=== PATIENT | female | born 1985 | race Caucasian/White ===

== ENCOUNTER 2017-07-22 01:50 | Observation (INO) | payer MEDICAID ==
[2017-07-22 02:37] LABS: AMORPHOUS SEDIMENT,URINE TRACE /HPF; APPEARANCE,URINE CLEAR; BILIRUBIN,URINE NEGATIVE (NEGATIVE); COLOR,URINE STRAW; GLUCOSE, URINE NEGATIVE (NEGATIVE); KETONES,URINE NEGATIVE (NEGATIVE); LEUKOCYTE ESTERASE,URINE NEGATIVE (NEGATIVE); NITRITE,URINE NEGATIVE (NEGATIVE); PROTEIN,URINE NEGATIVE (NEGATIVE); URINE SPECIFIC GRAVITY 1.004; UROBILINOGEN,URINE NEGATIVE mg/dL (<2.0)
[2017-07-22 02:49] LABS: URINE AMPHETAMINES SCREEN NEGATIVE; URINE BARBITURATES SCREEN NEGATIVE; URINE BENZODIAZEPINES SCREEN NEGATIVE; URINE COCAINE SCREEN NEGATIVE; URINE MARIJUANA (THC) SCREEN NEGATIVE; URINE METHADONE SCREEN NEGATIVE; URINE PHENCYCLIDINE SCREEN NEGATIVE
--- NOTE | 2017-07-22 04:14 | RADIOLOGY REPORT (SQ) ---
EXAM DESCRIPTION: U/S OB LIMITED COMPLETED DATE/TIME: 07/22/2017 3:37 am REASON FOR STUDY: contractions. The patient is 33 weeks 2 days . COMPARISON: None. TECHNIQUE: Limited transvaginal and transabdominal grayscale ultrasound for evaluation of specific r equested obstetrical parameters. LIMITATIONS: None. FINDINGS: CERVIX: There is funneling of the cervix at the internal os measuring approximately 3.5 cm in width and 3.0 cm in depth. The residual closed segment of the cervix measures 1.7 cm in length. FHR: 158 beats per minute. PRESENTATION: Vertex. IMPRESSION: LIMITED OBSTETRICAL ULTRASOUND WITH MEASURED PARAMETERS DELINEATED ABOVE. CERVICAL FUNNELING WITH SHORTENING OF THE CERVIX, WORRISOME FOR CERVICAL INCOMPETENCE. Trimester of : Third trimester - 28 weeks to delivery. TECHNICAL DOCUMENTATION: JOB ID: [id number] [employer]- All Rights Reserved
[2017-07-22] MEDS ORDERED: MAGNESIUM SULFATE 4 GM/100 ML RTUPB IV ONE ×2 (04:33→04:43)
[2017-07-22] MEDS ORDERED: BETAMET ACET/BETAMET NA INJ 6 MG/1 ML ONE (04:42)
[2017-07-22] MEDS ORDERED: BETAMET ACET/BETAMET NA INJ 6 MG/1 ML IM ONE (04:45)
[2017-07-22] MEDS ORDERED: CLINDAMYCIN 900 MG/D5W RTU 50 ML IV ONE ×4 (04:45→21:44)
[2017-07-22] MEDS: RINGERS SOLUTION,LACTATED 1,000 ML IV PRN ×2 (05:02→12:07)
[2017-07-22 05:58] LABS: HEMATOCRIT 36.5 % (36.0-47.0); HEMOGLOBIN 12.6 g/dL (12.0-15.5); MEAN CORPUSCULAR HEMOGLOBIN 29.4 pg (27.0-33.4); MEAN CORPUSCULAR HGB CONC 34.4 g/dL (32.0-36.0); MEAN CORPUSCULAR VOLUME 86 fl (80-97); PLATELET COUNT 247 10^3/uL (150-450); RED BLOOD COUNT 4.27 10^6/uL (3.72-5.28); RED CELL DISTRIBUTION WIDTH 14.8 % (11.5-14.0); WHITE BLOOD COUNT 21.5 10^3/uL (4.0-10.5)
[2017-07-22 06:51] LABS: ABSOLUTE LYMPHOCYTES# (MANUAL) 3.4 10^3/uL (0.5-4.7); ABSOLUTE MONOCYTES # (MANUAL) 0.6 10^3/uL (0.1-1.4); ABSOLUTE NEUTROPHILS# (MANUAL) 17.4 10^3/uL (1.7-8.2); BASOPHILS % (MANUAL) 0 % (0-2); EOSINOPHILS % (MANUAL) 0 % (0-6); LYMPHOCYTES % (MANUAL) 16 % (13-45); MONOCYTES % (MANUAL) 3 % (3-13); SEGMENTED NEUTROPHILS % (MAN) 81 % (42-78); TOTAL CELLS COUNTED 100
[2017-07-22 06:53] LABS: ANISOCYTOSIS SLIGHT
[2017-07-22 06:54] LABS: PLATELET COMMENT ADEQUATE
[2017-07-22 07:53] LABS: CHLAM PCR NOT DETECTED (NOT DETECT); GON PCR NOT DETECTED (NOT DETECT)
[2017-07-22] MEDS: MAGNESIUM SULFATE 20 GM/500 ML RTUINJ IV PRN ×2 (10:07→15:01)
[2017-07-22] MEDS: CLINDAMYCIN 900 MG/D5W RTU 50 ML IV SCH ×2 (14:28→21:55)
[2017-07-22] MEDS ORDERED: ZOLPIDEM TARTRATE 5 MG TABLET PO ONE (20:30)
[2017-07-22] MEDS ORDERED: ZOLPIDEM TARTRATE 5 MG TABLET ONE (21:43)
[2017-07-22] MEDS ORDERED: ACETAMINOPHEN 325 MG TABLET ONE (22:13)
[2017-07-22] MEDS: ACETAMINOPHEN 325 MG TABLET PO PRN (22:13)
[2017-07-23] MEDS: MAGNESIUM SULFATE 20 GM/500 ML RTUINJ IV PRN (00:49)
[2017-07-23] MEDS: RINGERS SOLUTION,LACTATED 1,000 ML IV PRN (02:02)
[2017-07-23] MEDS ORDERED: BETAMET ACET/BETAMET NA INJ 6 MG/1 ML IM ONE (04:30)
[2017-07-23] MEDS ORDERED: BETAMET ACET/BETAMET NA INJ 6 MG/1 ML ONE (04:58)
[2017-07-23] MEDS ORDERED: ACETAMINOPHEN 325 MG TABLET ONE (05:40)
[2017-07-23] MEDS ORDERED: CLINDAMYCIN 900 MG/D5W RTU 50 ML IV ONE (05:40)
[2017-07-23] MEDS: ACETAMINOPHEN 325 MG TABLET PO PRN (05:43)
[2017-07-23] MEDS: CLINDAMYCIN 900 MG/D5W RTU 50 ML IV SCH (05:45)
[2017-07-23 07:58] VITALS: BP 107/64
--- NOTE | 2017-08-31 14:28 | PDOC H&P ---
History of Present Illness Admission Date/PCP: 07/22/17 04:32 Patient complains of: contractions/cramping. 33 wks EGA History of Present Illness: FRANCIA SLOAN is a 32 year old female presenting @ approximately 33 4/7 wks EGA with c/o cramping and mild discharge Past Medical History Neurological Medical History: Reports: Seizures - Seizures as a child Past Surgical History Past Surgical History: Reports: Tonsillectomy Social History Information Source: Patient Lives with: Family Smoking Status: Unknown if Ever Smoked Family History Family History: None Parental Family History Reviewed: No Children Family History Reviewed: No Sibling(s) Family History Reviewed.: No Medication/Allergy Home Medications: Prenat 115/Iron Fum/Folic/Dss [ 19 Tablet] 1 each PO DAILY 07/22/17 Docusate Sodium [Colace 100 mg Capsule] 100 mg PO BID #60 capsule 08/27/17 Ibuprofen [Motrin 800 mg Tablet] 800 mg PO Q8 #60 tablet 08/27/17 Allergies/Adverse Reactions: amoxicillin Allergy (Verified 08/25/17 23:47) ampicillin Allergy (Verified 08/25/17 23:47) ciprofloxacin [From Cipro] Allergy (Verified 08/25/17 23:47) erythromycin base Allergy (Verified 08/25/17 23:47) Penicillins Allergy (Verified 08/25/17 23:47) sulfamethoxazole [From Septra] Allergy (Verified 08/25/17 23:47) trimethoprim [From Septra] Allergy (Verified 08/25/17 23:47) Physical Exam - Physical Exam Vital Signs: Temp Pulse Resp BP Pulse Ox 97.6 F 99 16 107/64 98 07/23/17 07:45 07/23/17 07:45 07/23/17 07:45 07/23/17 07:45 07/23/17 07:45 General appearance: PRESENT: mild distress GI/Abdominal exam: PRESENT: soft - gravid, nontender - Gynecological Exam Labia: normal Urethra: normal Introitus: normal Perineum: normal Vagina: normal Cervix: normal Cervix: normal Result Laboratory Results: 07/22/17 05:32 Impressions: Obstetrics Ultrasound 07/22/17 00:00 IMPRESSION: LIMITED OBSTETRICAL ULTRASOUND WITH MEASURED PARAMETERS DELINEATED ABOVE. CERVICAL FUNNELING WITH SHORTENING OF THE CERVIX, WORRISOME FOR CERVICAL INCOMPETENCE. Trimester of : Third trimester - 28 weeks to delivery. Assessment & Plan - Diagnosis (1) Qualifiers: Weeks of gestation: 33 weeks Qualified Code(s): Z3A.33 - 33 weeks gestation of Is this a current diagnosis for this admission?: Yes (2) contractions Is this a current diagnosis for this admission?: Yes (3) Antepartum cervical shortening Is this a current diagnosis for this admission?: Yes - Time Time Spent: 30 to 50 Minutes Critical Time spent with patient: Less than 15 minutes Anticipated discharge: Home Within: within 24 hours, within 48 hours - Inpatient Certification Based on my medical assessment, after consideration of the patient's comorbidities, presenting symptoms, or acuity I expect that the services needed warrant INPATIENT care.: Yes I certify that my determination is in accordance with my understanding of Medicare's requirements for reasonable and necessary INPATIENT services [42 CFR 412.3e].: Yes Medical Necessity: Need Close Monitoring Due to Risk of Patient Decompensation, Need For IV Fluids, Risk of Complication if Not Cared For in Hospital, Other - risk of delivery - Plan Summary Plan Summary: will admit for ACS protocol for lung maturity and magnesium sulfate both for tocolysis as well as neuroprotection. plan discussed with patient who voices understanding that delivery could be early or if interventions are successful could be delayed until closer to term. Voices understanding. Give Clindamycin for GBS prophylaxis/increase latency
--- NOTE | 2017-08-31 14:42 | PDOC DISCHARGE SUMMARY ---
General - Admit/Disc Date/PCP Admission Date/Primary Care Provider: 07/22/17 04:32 Discharge Date: 07/23/17 - Discharge Diagnosis (1) Is this a current diagnosis for this admission?: Yes (2) contractions Is this a current diagnosis for this admission?: Yes (3) Antepartum cervical shortening Is this a current diagnosis for this admission?: Yes - Additional Information Discharge Diet: Regular Discharge Activity: Activity As Tolerated, Balance Activity w/Rest, Pelvic Rest Home Medications: Prenat 115/Iron Fum/Folic/Dss [ 19 Tablet] 1 each PO DAILY 07/22/17 Docusate Sodium [Colace 100 mg Capsule] 100 mg PO BID #60 capsule 08/27/17 Ibuprofen [Motrin 800 mg Tablet] 800 mg PO Q8 #60 tablet 08/27/17 History of Present Illness History of Present Illness: FRANCIA SLOAN is a 32 year old female presenting @ approximately 33 4/7 wks EGA with c/o cramping and mild discharge Hospital Course Hospital Course: has undergone labors interventions of ACS and Magnesium sulfate without difficulty. Contractions have resolved and no further signs of labor progression. Desires discharge home Physical Exam - Physical Exam Vital Signs: Temp Pulse Resp BP Pulse Ox 97.6 F 99 16 107/64 98 07/23/17 07:45 07/23/17 07:45 07/23/17 07:45 07/23/17 07:45 07/23/17 07:45 General appearance: PRESENT: no acute distress, cooperative GI/Abdominal exam: PRESENT: soft, other - gravid, nontender - Gynecological Exam Labia: normal Urethra: normal Introitus: normal Perineum: normal Vagina: normal Cervix: normal Cervix: normal Result Laboratory Results: 07/22/17 05:32 Impressions: Obstetrics Ultrasound 07/22/17 00:00 IMPRESSION: LIMITED OBSTETRICAL ULTRASOUND WITH MEASURED PARAMETERS DELINEATED ABOVE. CERVICAL FUNNELING WITH SHORTENING OF THE CERVIX, WORRISOME FOR CERVICAL INCOMPETENCE. Trimester of : Third trimester - 28 weeks to delivery. Plan Discharge Plan: discharge home with strict instructions to return if contractions begin again. Bleeding, kick count and rupture of membranes precautions given. Time Spent: Less than 30 Minutes
== END 2017-07-23 10:07 | disposition home or self-care (01) ==
LOC: LC 01:50 → LR 04:32 → UNDODISOB 07-23 10:07
PROVIDERS: ADMIT Obstetrics & Gynecology; ATTEND Obstetrics & Gynecology
PROC: 4A0HXCZ Measurement of Products of Conception, Cardiac Rate, External Approach (ICD-10-PCS; principal; 2017-07-22)
DX: O60.03 Preterm labor without delivery, third trimester (principal); O26.873 Cervical shortening, third trimester; Z3A.33 33 weeks gestation of pregnancy
CPT/HCPCS: 59025; 86900; 86901; 36415; 86870; 86850; 83735; 85025; 87077; 86592; 81001; 87081; 80307; 87491; 87591; 86902; 76815; G0378 ×2; G0379; J3475; J3490 ×3; J0702 ×2

== ENCOUNTER 2017-08-25 14:46 | Outpatient (CLI) | payer MEDICAID ==
--- NOTE | 2017-08-25 14:57 | Admission Physical ---
Datetime Report Generated by CPN: 08/25/2017 14:57 CURRENT ADMISSION Chief Complaint: Uterine Contractions Indication for Induction: Not Applicable Indication for Induction: , Intrauterine ; No Active Labor; Observation/Evaluation Admit Plan: Admit to Unit; Observation/Evaluation ALLERGIES Medication Allergies: Yes Medication Allergies: Penicillins (07/22/2017); ampicillin (07/22/2017); erythromycin base (07/22/2017); sulfamethoxazole (07/22/2017); trimethoprim (07/22/2017); ciprofloxacin (07/22/2017); amoxicillin (07/22/2017) Medication Allergies: No Known Allergies (05/16/2016) Latex: No Latex Allergies OBSTETRICAL HISTORY EDC: 09/07/2017 00:00 : 3 Para: 2 Term: 2 : 0 SAB: 0 IAB: 0 Ectopic: 0 Livin Cesareans: 0 VBACs: 0 Multiple Births: 0 Gestational Diabetes: Yes Rh Sensitization: No Incompetent Cervix: Unknown DAMEON: No Infertility: No ART Treatment: No Uterine Anomaly: No IUGR: No Hx Previous C/S: No Macrosomia: No Hx Loss/Stillborn: No PIH: No Hx : No Placenta Previa/Abruption: No Depression/PP Depression: No PTL/PROM: Yes Post Hemorrhage: Yes Current Procedures: Ultrasound; NST Obstetrical History Comments: G1- - bed rest, delivered at 38 weeks G2- - dialating starting at 23 wks, bed rest delivered 38 weeks SEE RECORDS Alcohol: No Marijuana : No Cocaine: No Other Illicit Drugs: No Cigarettes: Current Everyday Smoker. [id number] Cigarette Frequency: < 5 per day Advised to Stop: Yes MEDICAL HISTORY Diabetes: No Blood Transfusion: No Pulmonary Disease (Asthma, TB): No Breast Disease: No Hypertension: No Health Practice Manager Surgery: No Heart Disease: No Hosp/Surgery: No Autoimmune Disorder: No Anesthetic Complications: No Kidney Disease: No Abnormal Pap Smear: No Neuro/Epilepsy: No Psychiatric Disorders: Yes Other Medical Diseases: No Hepatitis/Liver Disease: No Significant Family History: No Varicosities/Phlebitis: No Trauma/Violence : No Thyroid Dysfunction: No Medical History Comments: Bipolar, ADHD, Anxiety, Depression- no meds INFECTIOUS HISTORY Gonorrhea: No Genital Herpes: No Chlamydia: No Tuberculosis: No Syphilis: No Hepatitis: No HIV/AIDS Exposure: No Rash or Viral Illness: No HPV: No PHYSICAL EXAM General: Normal HEENT: Normal Neurologic: Normal Thyroid: Normal Heart: Normal Lungs: Normal Breast: Normal Back: Normal Abdomen: Normal Genitourinary Exam: Normal Extremities: Normal DTRs: Normal Pelvic Type: Adequate Vital Signs: Reviewed VAGINAL EXAM Dilatation: 1 Effacement: 80 Station: 0 MEMBRANES Pooling: Negative Membranes: Intact FETUS A EGA: 33.2 Monitoring: External US FHR- Baseline: 140 Variability: Moderate 6-25bpm Accelerations: 15X15 Decelerations: None FHR Category: Category I Estimated Weight (gm): 2000 Presentation: Vertex Admit Comment: Cervical length 1.7 cm w/ funneling. irregular ctxns. Pt has h/o labor in her previous pregnancies however both delivered at term. Admit for observation, tocolysis and ACS protocol. If stabilizes will discharge home with modified bedrest instructions. PLANS FOR LABOR AND DELIVERY Labor and Delivery: None Pain Management: Epidural Feeding Preference: Both Benefit of Breast Feed Discussed: Yes Circumcision: Yes INFORMED CONSENT Signature: with User ID: [email or web address]
--- NOTE | 2017-08-25 15:36 | Non Stress Test Report ---
Non Stress Test Datetime Report Generated by CPN: 08/25/2017 15:35 DEMOGRAPHIC EGA NST: 38.1 INDICATION Indication for Study: Ordered by Provider VITAL SIGNS Temperature - NST: 97.8 Pulse - NST: 96 RESP - NST: 14 NBPSYS NST: 132 NBPDIA NST: 56 MONITORING Monitor Explained: Monitor Explained; Test Explained; Patient Verbalized Understanding Time on Monitor: 08/25/2017 14:56 Time off Monitor: 08/25/2017 15:23 NST Duration: 27 NST INTERVENTIONS NST Interventions: PO Hydration Physician Notified NST: H Ray CNM BABY A: [id number] BABY A Movement : Present Contraction Frequency : none FHR Baseline : 125 Accelerations : 15X15 Decelerations : None Variability : Moderate 6-25bpm NST Review: Meets Criteria for Reactive NST NST Review and Verified By : Chava Carty RN NST Results: Reactive NST REPORT Report Trigger: Send Report
== END 2017-08-25 15:28 | disposition home or self-care (01) ==
LOC: LC 14:46
PROVIDERS: ATTEND Obstetrics & Gynecology
PROC: 4A1HXCZ Monitoring of Products of Conception, Cardiac Rate, External Approach (ICD-10-PCS; principal; 2017-08-25)
DX: O47.1 False labor at or after 37 completed weeks of gestation (principal); O24.410 Gestational diabetes mellitus in pregnancy, diet controlled; O99.333 Smoking (tobacco) complicating pregnancy, third trimester; F31.9 Bipolar disorder, unspecified; Z3A.38 38 weeks gestation of pregnancy
CPT/HCPCS: 59025

== ENCOUNTER 2017-08-25 20:38 | Inpatient (IN) | payer MEDICAID ==
[2017-08-25] MEDS ORDERED: LIDOCAINE 1% INJ-PF (10 MG/ML) 30 ML SDV ONE (20:40)
[2017-08-25] MEDS ORDERED: MISOPROSTOL 0.2 MG TABLET ONE (20:40)
[2017-08-25] MEDS ORDERED: OXYTOCIN/NORMAL SALINE 20 UNIT/1,000 ML RTUINJ ONE (20:41)
[2017-08-25] MEDS ORDERED: CLINDAMYCIN 900 MG/D5W RTU 50 ML IV ONE (20:49)
[2017-08-25] MEDS ORDERED: RINGERS SOLUTION,LACTATED 1,000 ML IV PRN (20:50)
[2017-08-25] MEDS ORDERED: CLINDAMYCIN 900 MG/D5W RTU 50 ML IV SCH (21:00)
[2017-08-25] MEDS ORDERED: OXYTOCIN 10 UNIT/ML VIAL ONE (21:16)
[2017-08-25] MEDS ORDERED: IBUPROFEN 800 MG TABLET ONE (21:18)
[2017-08-25] MEDS ORDERED: ACETAMINOPHEN WITH CODEINE #3 TABLET ONE (21:18)
[2017-08-25] MEDS ORDERED: DIPHENHYDRAMINE HCL 25 MG CAPSULE PO PRN (21:25)
[2017-08-25] MEDS ORDERED: NA PHOS,M-B/NA PHOS,DI-BA (ADULT) 133 ML ENEMA PR PRN (21:25)
[2017-08-25] MEDS ORDERED: MAGNESIUM HYDROXIDE SUSP 30 ML UDCUP PO PRN (21:25)
[2017-08-25] MEDS ORDERED: ZOLPIDEM TARTRATE 5 MG TABLET PO PRN (21:25)
[2017-08-25] MEDS ORDERED: BENZOCAINE/MENTHOL AEROSOL SPRAY 56 ML TOP PRN (21:25)
[2017-08-25] MEDS ORDERED: DIBUCAINE 1% OINTMENT 28 GM TP PRN (21:25)
[2017-08-25] MEDS ORDERED: PSEUDOEPHEDRINE HCL 30 MG TABLET PO PRN (21:25)
[2017-08-25] MEDS ORDERED: ACETAMINOPHEN WITH CODEINE #3 TABLET PO PRN (21:25)
[2017-08-25] MEDS ORDERED: OXYTOCIN/NORMAL SALINE 20 UNIT/1,000 ML RTUINJ IV PRN (21:25)
[2017-08-25] MEDS ORDERED: PROMETHAZINE HCL INJ 25 MG/1 ML VIAL IV PRN (21:25)
[2017-08-25] MEDS ORDERED: GLYCERIN/WITCH HAZEL LEAF 1 EACH MED..PAD TP PRN (21:25)
[2017-08-25] MEDS ORDERED: DIPH/PERTUSS(ACELL)/TETANUS VAC/PF 0.5 ML SYR (>=10YO) IM PRN (21:25)
[2017-08-25] MEDS ORDERED: PROMETHAZINE HCL 25 MG SUPP.RECT PR PRN (21:25)
[2017-08-25] MEDS ORDERED: ACETAMINOPHEN 650 MG SUPP.RECT PR PRN (21:25)
[2017-08-25] MEDS ORDERED: PROMETHAZINE HCL 25 MG TABLET PO PRN (21:25)
[2017-08-25] MEDS ORDERED: MEASLES,MUMPS&RUBELLA VACC/PF 0.5 ML VIAL SUBCUT PRN (21:25)
--- NOTE | 2017-08-25 21:32 | Admission Physical ---
Datetime Report Generated by CPN: 08/25/2017 21:31 CURRENT ADMISSION Chief Complaint: Uterine Contractions Chief Complaint: Uterine Contractions Indication for Induction: Not Applicable Indication for Induction: Not Applicable Indication for Induction: Term, Intrauterine ; Active Labor; Ruptured Membranes Indication for Induction: , Intrauterine ; No Active Labor; Observation/Evaluation Admit Plan: Admit to Unit; Initiate Labor Induction Protocol Admit Plan: Admit to Unit; Observation/Evaluation ALLERGIES Medication Allergies: Yes Medication Allergies: Penicillins (07/22/2017); ampicillin (07/22/2017); erythromycin base (07/22/2017); sulfamethoxazole (07/22/2017); trimethoprim (07/22/2017); ciprofloxacin (07/22/2017); amoxicillin (07/22/2017) Medication Allergies: No Known Allergies (05/16/2016) Latex: No Latex Allergies OBSTETRICAL HISTORY EDC: 09/07/2017 00:00 : 3 Para: 2 Term: 2 : 0 SAB: 0 IAB: 0 Ectopic: 0 Livin Cesareans: 0 VBACs: 0 Multiple Births: 0 Gestational Diabetes: Yes Rh Sensitization: No Incompetent Cervix: Unknown DAMEON: No Infertility: No ART Treatment: No Uterine Anomaly: No IUGR: No Hx Previous C/S: No Macrosomia: No Hx Loss/Stillborn: No PIH: No Hx : No Placenta Previa/Abruption: No Depression/PP Depression: No PTL/PROM: Yes Post Hemorrhage: Yes Current Procedures: Ultrasound; NST Obstetrical History Comments: G1- - bed rest, delivered at 38 weeks G2- - dialating starting at 23 wks, bed rest delivered 38 weeks SEE RECORDS Alcohol: No Marijuana : No Cocaine: No Other Illicit Drugs: No Cigarettes: Current Everyday Smoker. [id number] Cigarette Frequency: < 5 per day Advised to Stop: Yes MEDICAL HISTORY Diabetes: No Blood Transfusion: No Pulmonary Disease (Asthma, TB): No Breast Disease: No Hypertension: No Drug Counselor Surgery: No Heart Disease: No Hosp/Surgery: No Autoimmune Disorder: No Anesthetic Complications: No Kidney Disease: No Abnormal Pap Smear: No Neuro/Epilepsy: No Psychiatric Disorders: Yes Other Medical Diseases: No Hepatitis/Liver Disease: No Significant Family History: No Varicosities/Phlebitis: No Trauma/Violence : No Thyroid Dysfunction: No Medical History Comments: Bipolar, ADHD, Anxiety, Depression- no meds INFECTIOUS HISTORY Gonorrhea: No Genital Herpes: No Chlamydia: No Tuberculosis: No Syphilis: No Hepatitis: No HIV/AIDS Exposure: No Rash or Viral Illness: No HPV: No PHYSICAL EXAM General: Normal General: Normal HEENT: Normal HEENT: Normal Neurologic: Normal Neurologic: Normal Thyroid: Normal Thyroid: Normal Heart: Normal Heart: Normal Lungs: Normal Lungs: Normal Breast: Deferred Breast: Normal Back: Normal Back: Normal Abdomen: Normal Abdomen: Normal Genitourinary Exam: Normal Genitourinary Exam: Normal Extremities: Normal Extremities: Normal DTRs: Normal DTRs: Normal Pelvic Type: Adequate Pelvic Type: Adequate Vital Signs: Reviewed Vital Signs: Reviewed VAGINAL EXAM Dilatation: 8 Dilatation: 1 Effacement: 100 Effacement: 80 Station: 0 Station: 0 MEMBRANES Pooling: Positive Pooling: Negative Membranes: Ruptured Membranes: Intact FETUS A EGA: 38.1 EGA: 33.2 Monitoring: External US Monitoring: External US FHR- Baseline: 120 FHR- Baseline: 140 Variability: Moderate 6-25bpm Variability: Moderate 6-25bpm Accelerations: 15X15 Accelerations: 15X15 Decelerations: None FHR Category: Category I FHR Category: Category I Estimated Weight (gm): 2000 Presentation: Vertex Presentation: Vertex Admit Comment: Admit for delivery Admit Comment: Cervical length 1.7 cm w/ funneling. irregular ctxns. Pt has h/o labor in her previous pregnancies however both delivered at term. Admit for observation, tocolysis and ACS protocol. If stabilizes will discharge home with modified bedrest instructions. PLANS FOR LABOR AND DELIVERY Labor and Delivery: None Pain Management: Epidural Feeding Preference: Both Benefit of Breast Feed Discussed: Yes Circumcision: Yes INFORMED CONSENT Signature: with User ID: Josh Signature: with User ID: Vanessa : with User ID: Vanessa
[2017-08-25 22:44] LABS: ABSOLUTE BASOPHILS # (AUTO) 0.1 10^3/uL (0.0-0.2); ABSOLUTE LYMPHOCYTES (AUTO) 1.5 10^3/uL (0.5-4.7); ABSOLUTE MONOCYTES (AUTO) 0.7 10^3/uL (0.1-1.4); ABSOLUTE NEUT (AUTO) 17.1 10^3/uL (1.7-8.2); BASOPHILS % (AUTO) 0.4 % (0-2); EOSINOPHILS % (AUTO) 0.2 % (0-6); HEMATOCRIT 40.6 % (36.0-47.0); HEMOGLOBIN 13.8 g/dL (12.0-15.5); LYMPHOCYTES % (AUTO) 7.7 % (13-45); MEAN CORPUSCULAR HEMOGLOBIN 28.8 pg (27.0-33.4); MEAN CORPUSCULAR HGB CONC 34.1 g/dL (32.0-36.0); MEAN CORPUSCULAR VOLUME 85 fl (80-97); MONOCYTES % (AUTO) 3.8 % (3-13); PLATELET COUNT 259 10^3/uL (150-450); RED CELL DISTRIBUTION WIDTH 14.5 % (11.5-14.0); SEGMENTED NEUTROPHILS % (AUTO) 87.9 % (42-78); TOTAL CELLS COUNTED % (AUTO) 100 %; WHITE BLOOD COUNT 19.4 10^3/uL (4.0-10.5)
--- NOTE | 2017-08-25 23:26 | Warning Signs in Babies ---
VOD Warning Signs Datetime Report Generated by [facility]: 08/25/2017 23:26 VOD#608 -Warning Signs in Babies: Needs to be viewed. (07/22/2017 01:52:Diana Bernal RN)
--- NOTE | 2017-08-26 00:17 | Delivery Summary ---
Del Sum A-C Datetime Report Generated by CPN: 08/26/2017 00:16 DELIVERY PERSONNEL DELIVERY PERSONNEL: [id number] Delivery Doctor:: Jorge Hanna MD Labor and Delivery Nurse:: Diana Bernal RNfamily coach Nurse:: Tatiana Cartagena RN Projects Manager/FAMILY AND CONSUMER EDUCATION TEACHER: Darylbrigitte Rickettsraymundo, FAMILY AND CONSUMER EDUCATION TEACHER MATERNAL INFORMATION Delivery Anesthesia: None Medications After Delivery: Pitocin 10 Units IM Estimated Blood Loss (ml): 250 Maternal Complications: Precipitous Labor (<3hrs); Other Other Maternal Complications: GDM LABOR SUMMARY EDC: 09/07/2017 00:00 No. Babies in Womb: 1 Attempted: No Labor Anesthesia: None LABOR INFORMATION Reason for Induction: Not Applicable Onset of Labor: 08/25/2017 19:20 Complete Dilatation: 08/25/2017 20:52 Oxytocin: N/A Group B Beta Strep: Positive Antibiotics # of Doses: 1 Antibiotics Time of Last Dose: 2048 Name of Antibiotic Given: clindamycin Steroids Given: Full Course; > 24 Hours before Delivery Reason Steroids Not Administered: Not Applicable MEMBRANES Membranes Rupture Method: Spontaneous Rupture of Membranes: 08/25/2017 19:30 Length of Rupture (hr): 1.87 Amniotic Fluid Color: Clear Amniotic Fluid Amount: Moderate Amniotic Fluid Odor: Normal STAGES OF LABOR Stage 1 hr: 1 Stage 1 min: 32 Stage 2 hr: 0 Stage 2 min: 20 Stage 3 hr: 0 Stage 3 min: 5 Total Time in Labor hr: 1 Total Time in Labor min: 57 VAGINAL DELIVERY Episiotomy: None Laceration #1: None Laceration Extension #1: N/A Laceration #2: None Laceration Extension #2: N/A Laceration #3: None Laceration Extension #3: N/A Laceration Repair: Not Applicable Sponge Count Correct: Vaginal Sweep Performed Sharps Count Correct: Yes CSECTION DELIVERY Primary Indication: N/A Secondary Indication: N/A CSection Incidence: N/A Labor: N/A Elective: N/A BABY A INFORMATION Infant Delivery Date/Time: 08/25/2017 21:12 Method of Delivery: Vaginal Born in Route : No : N/A Forceps: N/A Vacuum Extraction: N/A Shoulder Dystocia : No PRESENTATION/POSITION BABY A Presentation: Cephalic Cephalic Presentation: Vertex Vertex Position: Right Occipital Anterior Breech Presentation: N/A PLACENTA INFORMATION BABY A Placenta Delivery Time : 08/25/2017 21:17 Placenta Method of Delivery: Spontaneous Placenta Status: Delivered SCORES BABY A Heart Rate 1 min: >100 bpm Resp Effort 1 min: Good Cry Reflex Irritability 1 min: Cough or Sneeze or Pulls Away Muscle Tone 1 min: Active Motion Color 1 min: Blue/Pale Resuscitation Effort 1 min: Tactile Stimulation SCORE 1 MIN: 8 Heart Rate 5 min: >100 bpm Resp Effort 5 min: Good Cry Reflex Irritability 5 min: Cough or Sneeze or Pulls Away Muscle Tone 5 min: Active Motion Color 5 min: Body [place], Extremities Blue Resuscitation Effort 5 min: Tactile Stimulation SCORE 5 MIN: 9 INFANT INFORMATION BABY A Gestational Age at Delivery: 38.1 Gestational Status: Early Term- 37- 38.6 Weeks Infant Outcome : Liveborn Condition : Stable Infant Sex: Male IDENTIFICATION BABY A Infant Verification Date/Time: 08/25/2017 21:26 ID Band Number: [id number] Mother's Name Verified: Yes Infant RN Verifying : rn kossmann Additional Verifying Personnel: waiter/waitress cabin class margi WEIGHT/LENGTH BABY A Birthweight (gm): 3600 Infant Weight (lb): 7 Weight (oz): 15 Infant Length (in): 21.00 Length (cm): 53.34 CORD INFORMATION BABY A No. Cord Vessels: 3 Nuchal Cord : N/A Cord Blood Taken: Yes-For Eval (Mom's Blood Type - or O+) Suction: Mouth ASSESSMENT BABY A Infant Complications: Other Complications- Other: variable decelerations Physical Findings at Delivery: Within Normal Limits Infant Respirations: Appears Normal Skin to Skin: No (Annotations: Mother prefers not to do skin to skin) Jewelry Repairer/ALS Called : No Care By: nursery staff Transferred To: Remains with Mother BABY B INFORMATION : N/A SIGNATURES Signature: with User ID: [email or web address]
[2017-08-26 00:30] LABS: APPEARANCE,URINE CLOUDY; BILIRUBIN,URINE NEGATIVE (NEGATIVE); COLOR,URINE RED; GLUCOSE, URINE NEGATIVE (NEGATIVE); KETONES,URINE NEGATIVE (NEGATIVE); LEUKOCYTE ESTERASE,URINE NEGATIVE (NEGATIVE); NITRITE,URINE NEGATIVE (NEGATIVE); PROTEIN,URINE 100 mg/dL (NEGATIVE); URINE SPECIFIC GRAVITY 1.009; UROBILINOGEN,URINE NEGATIVE mg/dL (<2.0)
[2017-08-26 00:52] LABS: URINE AMPHETAMINES SCREEN NEGATIVE; URINE BARBITURATES SCREEN NEGATIVE; URINE BENZODIAZEPINES SCREEN NEGATIVE; URINE COCAINE SCREEN NEGATIVE; URINE MARIJUANA (THC) SCREEN NEGATIVE; URINE METHADONE SCREEN NEGATIVE; URINE PHENCYCLIDINE SCREEN NEGATIVE
[2017-08-26] MEDS: IBUPROFEN 800 MG TABLET PO SCH ×4 (02:09→21:56)
[2017-08-26] MEDS: FAMOTIDINE 20 MG TABLET PO SCH ×3 (02:09→22:23)
[2017-08-26] MEDS: ACETAMINOPHEN WITH CODEINE #3 TABLET PO PRN ×2 (04:12→14:52)
[2017-08-26] MEDS ORDERED: CLINDAMYCIN 900 MG/D5W RTU 50 ML IV SCH (06:00)
[2017-08-26 07:33] LABS: HEMATOCRIT 37.2 % (36.0-47.0); HEMOGLOBIN 12.6 g/dL (12.0-15.5); MEAN CORPUSCULAR HEMOGLOBIN 28.6 pg (27.0-33.4); MEAN CORPUSCULAR HGB CONC 33.8 g/dL (32.0-36.0); MEAN CORPUSCULAR VOLUME 85 fl (80-97); PLATELET COUNT 229 10^3/uL (150-450); RED BLOOD COUNT 4.41 10^6/uL (3.72-5.28); RED CELL DISTRIBUTION WIDTH 14.3 % (11.5-14.0); WHITE BLOOD COUNT 19.3 10^3/uL (4.0-10.5)
--- NOTE | 2017-08-26 08:54 | PDOC PROGRESS REPORT ---
Subjective-OB Progress Note for:: 08/26/17 Subjective: day #1 s/p Pt doing well, pain well controlled, voiding without difficulty, lochia is stable, bonding with baby well. Physical Exam (OB) Vital Signs: Temp Pulse Resp BP Pulse Ox 98.2 F 79 17 110/67 99 08/26/17 08:00 08/26/17 08:00 08/26/17 08:00 08/26/17 08:00 08/26/17 08:00 Intake & Output 08/25/17 08/26/17 08/27/17 06:59 06:59 07:59 Weight 96.5 kg - Lochia Lochia Amount: Small 10-25 ml Lochia Color: Rubra/Red - Abdomen Description: Soft, Round Hernia Present: No Fundal Description: Firm, Midline Fundal Height: u/u - u/2 Objective-Diagnostic Laboratory: 08/26/17 07:20 08/25/17 08/25/17 08/25/17 22:22 22:22 23:22 WBC 19.4 H RBC 4.80 Hgb 13.8 Hct 40.6 MCV 85 MCH 28.8 MCHC 34.1 RDW 14.5 H Plt Count 259 Seg Neutrophils % 87.9 H Lymphocytes % 7.7 L Monocytes % 3.8 Eosinophils % 0.2 Basophils % 0.4 Absolute Neutrophils 17.1 H Absolute Lymphocytes 1.5 Absolute Monocytes 0.7 Absolute Eosinophils 0.0 Absolute Basophils 0.1 Urine Color RED Urine Appearance CLOUDY Urine pH 7.0 Ur Specific [place] 1.009 Urine Protein 100 H Urine Glucose (UA) NEGATIVE Urine Ketones NEGATIVE Urine Blood LARGE H Urine Nitrite NEGATIVE Ur Leukocyte Esterase NEGATIVE Blood Type O POSITIVE Antibody Screen POSITIVE 08/26/17 07:20 WBC 19.3 H RBC 4.41 Hgb 12.6 Hct 37.2 MCV 85 MCH 28.6 MCHC 33.8 RDW 14.3 H Plt Count 229 Seg Neutrophils % Lymphocytes % Monocytes % Eosinophils % Basophils % Absolute Neutrophils Absolute Lymphocytes Absolute Monocytes Absolute Eosinophils Absolute Basophils Urine Color Urine Appearance Urine pH Ur Specific [place] Urine Protein Urine Glucose (UA) Urine Ketones Urine Blood Urine Nitrite Ur Leukocyte Esterase Blood Type Antibody Screen Assessment and Plan(PN) - Assessment and Plan (1) Vaginal delivery Is this a current diagnosis for this admission?: Yes Plan: routine care (2) Anxiety Is this a current diagnosis for this admission?: Yes Plan: d/c planner chief (3) Bipolar affective disorder Qualifiers: Active/Remission status: in remission of unspecified degree Qualified Code( s): F31.70 - Bipolar disorder, currently in remission, most recent episode unspecified Is this a current diagnosis for this admission?: Yes Plan: d/c planner chief (4) GDM (gestational diabetes mellitus) Qualifiers: Gestational diabetes mellitus control: diet-controlled Trimester: third trimester Qualified Code(s): O24.410 - Gestational diabetes mellitus in , diet controlled Is this a current diagnosis for this admission?: Yes Plan: yearly follow up - Time Spent with Patient Time with patient: Less than 15 minutes Critical Time spent with patient: Less than 15 minutes Medications reviewed and adjusted accordingly: Yes - Disposition Anticipated Discharge: Home Within: within 24 hours
[2017-08-26] MEDS: SENNOSIDES/DOCUSATE 8.6-50 MG 1 EACH TABLET PO SCH (09:53)
[2017-08-26] MEDS: FERROUS SULFATE 325 MG TABLET PO SCH ×2 (09:53→17:32)
[2017-08-26] MEDS: PRENATAL VITAMIN W DHA CAPSULE PO SCH (09:54)
[2017-08-26] MEDS: DOCUSATE SODIUM 100 MG CAPSULE PO SCH ×2 (09:54→17:32)
[2017-08-27] MEDS: IBUPROFEN 800 MG TABLET PO SCH ×2 (05:58→14:41)
--- NOTE | 2017-08-27 08:33 | PDOC DISCHARGE SUMMARY ---
Final Diagnosis Discharge Date: 08/27/17 - Final Diagnosis (1) Vaginal delivery Is this a current diagnosis for this admission?: Yes (2) Anxiety Is this a current diagnosis for this admission?: Yes (3) Bipolar affective disorder Is this a current diagnosis for this admission?: Yes (4) GDM (gestational diabetes mellitus) Is this a current diagnosis for this admission?: Yes Discharge Data - Discharge Medication Prescriptions: Docusate Sodium [Colace 100 mg Capsule] 100 mg PO BID #60 capsule Ibuprofen [Motrin 800 mg Tablet] 800 mg PO Q8 #60 tablet Home Medications: Prenat 115/Iron Fum/Folic/Dss [ 19 Tablet] 1 each PO DAILY 07/22/17 Docusate Sodium [Colace 100 mg Capsule] 100 mg PO BID #60 capsule 08/27/17 Ibuprofen [Motrin 800 mg Tablet] 800 mg PO Q8 #60 tablet 08/27/17 Gestational Age: 38.1 Reason(s) for Admission: Onset of Labor, Group B Strep Positive Procedures: NST Intrapartum Procedure(s): Spontaneous Vaginal Delivery - Data Baby 1 Male at 1 minute: 8 at 5 minutes: 9 Weight: 3600 kg Home with Mother: Yes Complications: No - Diagnosis Test Laboratory: Temp Pulse Resp BP Pulse Ox 98.5 F 90 15 127/72 H 98 08/27/17 08:19 08/27/17 08:19 08/27/17 08:19 08/27/17 08:19 08/27/17 08:19 08/25/17 08/25/17 08/26/17 22:22 23:22 07:20 RBC 4.80 4.41 Hgb 13.8 12.6 Hct 40.6 37.2 Urine Opiates Screen UNCONFIRMED POSITIVE - Discharge information/Instructions Discharge Activity: Activity As Tolerated, Pelvic Rest, No tub bath Discharge Diet: Regular Disposition: HOME, SELF-CARE Follow up with: [facility] in: 1, Weeks - hx bipolar, depression
[2017-08-27] MEDS: ACETAMINOPHEN WITH CODEINE #3 TABLET PO PRN (08:36)
[2017-08-27] MEDS: DOCUSATE SODIUM 100 MG CAPSULE PO SCH ×2 (09:19→17:16)
[2017-08-27] MEDS: FERROUS SULFATE 325 MG TABLET PO SCH ×2 (09:19→17:15)
[2017-08-27] MEDS: PRENATAL VITAMIN W DHA CAPSULE PO SCH (09:19)
[2017-08-27] MEDS: SENNOSIDES/DOCUSATE 8.6-50 MG 1 EACH TABLET PO SCH (09:19)
[2017-08-27] MEDS: FAMOTIDINE 20 MG TABLET PO SCH (09:19)
[2017-08-27 11:46] VITALS: BP 110/67
== END 2017-08-27 21:00 | disposition home or self-care (01) | DRG 775 ==
LOC: LC 20:38 → LR 20:46 → 2S 23:35
PROVIDERS: ADMIT Obstetrics & Gynecology; ATTEND Obstetrics & Gynecology
PROC: 10E0XZZ Delivery of Products of Conception, External Approach (ICD-10-PCS; principal; 2017-08-25)
DX: O24.410 Gestational diabetes mellitus in pregnancy, diet controlled (principal); O62.3 Precipitate labor; O99.824 Streptococcus B carrier state complicating childbirth; O99.334 Smoking (tobacco) complicating childbirth; O99.344 Other mental disorders complicating childbirth; O76 Abnormality in fetal heart rate and rhythm complicating labor and delivery; F17.210 Nicotine dependence, cigarettes, uncomplicated; F31.9 Bipolar disorder, unspecified; F90.9 Attention-deficit hyperactivity disorder, unspecified type; F41.8 Other specified anxiety disorders; Z3A.38 38 weeks gestation of pregnancy; Z37.0 Single live birth
CPT/HCPCS: 36415; 80307; 81005; 85025; 85027; 86592; 86850; 86870; 86900; 86901; J2590; J3490

== ENCOUNTER 2018-11-18 19:31 | Outpatient (CLI) | payer MEDICAID ==
[2018-11-18 20:02] LABS: APPEARANCE,URINE CLEAR; BILIRUBIN,URINE NEGATIVE (NEGATIVE); COLOR,URINE YELLOW; GLUCOSE, URINE NEGATIVE (NEGATIVE); KETONES,URINE 20 mg/dL (NEGATIVE); LEUKOCYTE ESTERASE,URINE NEGATIVE (NEGATIVE); NITRITE,URINE NEGATIVE (NEGATIVE); PROTEIN,URINE NEGATIVE (NEGATIVE); UROBILINOGEN,URINE NEGATIVE mg/dL (<2.0)
[2018-11-18 20:17] LABS: URINE AMPHETAMINES SCREEN NEGATIVE; URINE BARBITURATES SCREEN NEGATIVE; URINE BENZODIAZEPINES SCREEN NEGATIVE; URINE COCAINE SCREEN NEGATIVE; URINE MARIJUANA (THC) SCREEN NEGATIVE; URINE METHADONE SCREEN NEGATIVE; URINE PHENCYCLIDINE SCREEN NEGATIVE
--- NOTE | 2018-11-18 21:30 | Non Stress Test Report ---
Non Stress Test Datetime Report Generated by CPN: 11/18/2018 21:30 DEMOGRAPHIC EGA NST: 37.2 INDICATION Indication for Study: Other Indication for Study (NST) Other: labor check MONITORING Monitor Explained: Monitor Explained; Test Explained; Patient Verbalized Understanding Time on Monitor: 11/18/2018 19:47 Time off Monitor: 11/18/2018 20:25 NST Duration: 38 NST INTERVENTIONS NST Interventions: None Physician Notified NST: Younger BABY A: [id number] BABY A Movement : Present Contraction Frequency : none FHR Baseline : 125 Accelerations : 15X15 Decelerations : None Variability : Moderate 6-25bpm NST Review: Meets Criteria for Reactive NST NST Review and Verified By : CAROLE Saxena NST Results: Reactive NST REPORT Report Trigger: Send Report
== END 2018-11-18 21:22 | disposition home or self-care (01) ==
LOC: LC 19:31
PROVIDERS: ATTEND Obstetrics & Gynecology
PROC: 4A1HXCZ Monitoring of Products of Conception, Cardiac Rate, External Approach (ICD-10-PCS; principal; 2018-11-18)
DX: O26.893 Other specified pregnancy related conditions, third trimester (principal); R10.9 Unspecified abdominal pain; Z3A.37 37 weeks gestation of pregnancy
CPT/HCPCS: 80307; 81005